=== PATIENT | male | born 1965 | race Caucasian/White ===

== ENCOUNTER 2018-02-28 06:04 | Emergency (ER) | payer BC, OTHER ==
[~2018-02-28] VITALS: Ht 172.7 cm; Wt 70.0 kg
[~2018-02-28 06:04] MED LIST: LEVE500T26 PO; MULT-506 PO
[2018-02-28 06:07] VITALS: TEMP 37; Ht 172.7 cm; Wt 70.0 kg
[2018-02-28] MEDS ORDERED: LEVE500T13 PO (06:27)
[2018-02-28] MEDS ORDERED: SODIUM CHLORIDE 0.9% 1000ML 1,000 ML IV STA (06:38)
--- NOTE | 2018-02-28 06:41 | EMERGENCY ROOM VISIT NOTE ---
History Report prepared by Jarred: Ailyn Mejía Under the Supervision of: Dr. Jadon Bray M.D. First contact with patient: 06:29 Chief Complaint: SYNCOPE Stated Complaint: SYNCOPE/CARDIAC SYMPTOMS Nursing Triage Summary: Pt states he woke up at 0500, while stating at the sink to shave he became lightheaded, dizzy, and "blackouty". History of Present Illness The patient is a 52 year old male who presents to the Emergency Room with complaints of a resolved episode of syncope that occurred about an hour and a half prior to arrival. The patient reports he has a history of "minor Afib incidents." He states he started going into Afib yesterday morning around 2:45 AM. He notes he was doing fine yesterday but this morning he woke up and was using the bathroom and states he felt lightheaded. He notes he had a couple episodes of syncope. He reports he bumped his head during his episodes but denies headache or loss of consciousness. He states he has not seen a direct care worker in a while. He last saw Dr. Jason of [facility] and had a chest X-ray and sonogram done which came back normal. He notes last time he was in the hospital he was given Cardizem which did not seem to help his Afib. He reports he is on Keppra and is not on a blood thinner. He states he has felt fine recently otherwise. He denies fevers, weakness, fatigue, or abdominal pain. He denies alcohol use. Source of History: patient Onset: an hour and a half prior to arrival Quality: other (syncope) Timing: resolved Associated Symptoms: No LOC, No fevers, No headache, No abdominal pain, No fatigue, No weakness Review of Systems See HPI for pertinent positives & negatives. A total of 10 systems reviewed and were otherwise negative. Past Medical & Surgical Medical Problems: (1) Atrial Fibrillation (2) Epilepsy Unspec W/O Mention Intractable Epilepsy (3) Hemangioma Intracranial Family History Cancer Social History Smoking Status: Never Smoker Alcohol Use: occasionally Drug Use: none Marital Status: Housing Status: lives with family Occupation Status: employed Current/Historical Medications Scheduled Levetiracetam (Keppra), 500 MG PO BID Multivitamin (Multivitamin), 1 TAB PO DAILY Allergies Coded Allergies: No Known Allergies (Unverified , 02/28/18) Physical Exam Vital Signs Date Time Temp Pulse Resp B/P (MAP) Pulse Ox O2 Delivery O2 Flow Rate FiO2 02/28/18 08:46 56 17 101/62 98 Room Air 02/28/18 07:51 57 100/50 100 Room Air 02/28/18 07:46 85/66 02/28/18 07:41 124/99 100 Nasal Cannula 2.0 02/28/18 07:40 60 02/28/18 07:40 124/78 02/28/18 07:39 Room Air 02/28/18 07:34 118/81 02/28/18 07:30 73 17 96 Room Air 02/28/18 07:03 109/91 02/28/18 07:01 88/75 02/28/18 07:00 78 13 02/28/18 06:43 98 Room Air 02/28/18 06:21 75 107/78 100 124/90 97 117/76 02/28/18 06:10 100 02/28/18 06:07 37.0 97 18 151/89 98 Room Air Physical Exam GENERAL: Awake, alert, well-appearing, in no acute distress HENT: Normocephalic, atraumatic. Oropharynx unremarkable. EYES: Normal conjunctiva. Sclera non-icteric. NECK: Supple. No nuchal rigidity. FROM. No JVD. RESPIRATORY: Clear to auscultation. CARDIAC: Regular rate, normal rhythm. Extremities warm and well perfused. Pulses equal. ABDOMEN: Soft, non-distended. No tenderness to palpation. No rebound or guarding. No masses. RECTAL: Deferred. MUSCULOSKELETAL: Chest examination reveals no tenderness. The back is symmetrical on inspection without obvious abnormality. There is no CVA tenderness to palpation. No joint edema. LOWER EXTREMITIES: Calves are equal size bilaterally and non-tender. No edema. No discoloration. NEURO: Normal sensorium. No sensory or motor deficits noted. SKIN: No rash or jaundice noted. Medical Decision & Procedures ER Provider Diagnostic Interpretation: Radiology results as stated below per my review and radiologist interpretation: CHEST ONE VIEW PORTABLE CLINICAL HISTORY: 52 years-old Male presenting with CHEST PAIN, syncope. TECHNIQUE: Portable upright AP view of the chest was obtained. COMPARISON: 06/24/2014. FINDINGS: Cardiomediastinal silhouette normal. Lungs and pleural spaces clear. Osseous structures normal. Upper abdomen normal. IMPRESSION: 1. No acute cardiopulmonary disease. Electronically signed by: Jose Mena M.D. 02/28/2018 7:02 AM Dictated Date/Time: 02/28/2018 7:01 AM Laboratory Results 02/28/18 06:20 Red Blood Count 4.96, Mean Corpuscular Volume 85.9, Mean Corpuscular Hemoglobin 30.2, Mean Corpuscular Hemoglobin Concent 35.2, Mean Platelet Volume 9.4, Neutrophils (%) (Auto) 52.6, Lymphocytes (%) (Auto) 37.4, Monocytes (%) (Auto) 7.1, Eosinophils (%) (Auto) 2.3, Basophils (%) (Auto) 0.4, Neutrophils # (Auto) 2.73, Lymphocytes # (Auto) 1.94, Monocytes # (Auto) 0.37, Eosinophils # (Auto) 0.12, Basophils # (Auto) 0.02 02/28/18 06:20 Test 02/28/18 06:20 White Blood Count 5.19 K/uL (4.8-10.8) Red Blood Count 4.96 M/uL (4.7-6.1) Hemoglobin 15.0 g/dL (14.0-18.0) Hematocrit 42.6 % (42-52) Mean Corpuscular Volume 85.9 fL (80-100) Mean Corpuscular Hemoglobin 30.2 pg (25-34) Mean Corpuscular Hemoglobin Concent 35.2 g/dl (32-36) Platelet Count 141 K/uL (130-400) Mean Platelet Volume 9.4 fL (7.4-10.4) Neutrophils (%) (Auto) 52.6 % Lymphocytes (%) (Auto) 37.4 % Monocytes (%) (Auto) 7.1 % Eosinophils (%) (Auto) 2.3 % Basophils (%) (Auto) 0.4 % Neutrophils # (Auto) 2.73 K/uL (1.4-6.5) Lymphocytes # (Auto) 1.94 K/uL (1.2-3.4) Monocytes # (Auto) 0.37 K/uL (0.11-0.59) Eosinophils # (Auto) 0.12 K/uL (0-0.5) Basophils # (Auto) 0.02 K/uL (0-0.2) RDW Standard Deviation 40.6 fL (36.4-46.3) RDW Coefficient of Variation 12.8 % (11.5-14.5) Immature Granulocyte % (Auto) 0.2 % Immature Granulocyte # (Auto) 0.01 K/uL (0.00-0.02) Anion Gap 7.0 mmol/L (3-11) Est Creatinine Clear Calc Drug Dose 72.3 ml/min Estimated GFR () 84.9 Estimated GFR (Non- 73.3 BUN/Creatinine Ratio 17.0 (10-20) Calcium Level 7.9 mg/dl (8.5-10.1) Total Bilirubin 0.5 mg/dl (0.2-1) Direct Bilirubin 0.2 mg/dl (0-0.2) Aspartate Amino Transf (AST/SGOT) 15 U/L (15-37) Alanine Aminotransferase (ALT/SGPT) 18 U/L (12-78) Alkaline Phosphatase 32 U/L (45-117) Total Creatine Kinase 92 U/L (39-308) Creatine Kinase MB 1.2 ng/ml (0.5-3.6) Creatine Kinase MB Ratio 1.3 (0-3.0) Troponin I < 0.015 ng/ml (0-0.045) Total Protein 6.1 gm/dl (6.4-8.2) Albumin 3.3 gm/dl (3.4-5.0) Lipase 137 U/L (73-393) Labs reviewed by ED physician. Medications Administered Medications (Trade) Dose Ordered Sig/Dipika Route Start Time Stop Time Status Last Admin Dose Admin Sodium Chloride 1,000 ml @ 999 mls/hr Q1H1M STAT IV 02/28/18 06:38 02/28/18 07:38 DC 02/28/18 06:46 999 MLS/HR Ondansetron HCl (Zofran Inj) 4 mg NOW STAT IV 02/28/18 07:08 02/28/18 07:09 DC 02/28/18 07:38 4 MG Procedure Procedural Sedation Indication atrial fibrillation cardioversion. Total time: 20 minutes. Written consent was obtained after the risks and benefits were explained to the patient, including, but not limited to aspiration, allergic reaction, breathing difficulties, cardiac complications, vomiting, pain, event recall, bleeding, and /or infection. Pre-sedation examination and paperwork completed. The patient was on 100% oxygen via NRB prior to the procedure. Continuos end tidal CO2 monitoring, pulse oximetry, and cardiac monitoring were utilized. Suction, airway equipment, medications, respiratory equipment, and appropriate personnel were prepared prior to the initiation of the procedure. A time out was taken. Sedation was achieved utilizing 190 mg of Propofol given in aliquots of 30. After I observed the patient had reached the appropriate level of sedation the main procedure was performed without complication. Sedation was discontinued and the monitoring continued. The patient recovered quickly from the effects of the medication without complication or adverse event. ECG Per My Interpretation Indication: syncope Rate (beats per minute): 68 Rhythm: atrial fibrillation Findings: other (no ST elevation or depression) ED Course 0630: Past medical records reviewed. The patient was evaluated in room A2. A complete history and physical examination was performed. 0750: Patient's repeat EKG shows normal sinus rhythm with a rate of 60. No ST elevation or depression. The patient was cardioverted out of Afib and is now in a normal sinus rhythm. 0815: Upon reexamination the patient is resting comfortably. I discussed results and treatment plan with the patient. He verbalizes agreement and understanding. The patient is ready for discharge. Medical Decision Differential diagnosis: Etiologies such as cardiac ischemia, aortic dissection, pulmonary embolism, pneumonia, pneumothorax, musculoskeletal, infections, pericarditis, myocarditis , esophageal rupture, gastrointestinal, as well as others were entertained. This is a 52-year-old male who presents emergency department complaining of 3 syncopal episodes back to back this morning. The patient is in atrial fibrillation and has been in it for approximately 28 hours. Patient reports that he normally converts spontaneously however he has not this time. 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 He also reports that medicines including Cardizem and beta-blockers have not worked for him in the past. Based on all this information and using shared medical decision making with both the patient as well as the patient's direct care worker we made the decision to cardiovert this patient back to normal sinus rhythm. He was sedated as above. Cardioversion was performed by Dr. Traci treviño. Please see her notes. After some time the patient did recover and was feeling much better. He is going to follow-up with Dr. Gan office. Patient was in agreement with the treatment plan. Medication Reconcilliation Current Medication List: was personally reviewed by me Blood Pressure Screening Patient's blood pressure: Normal blood pressure Impression Primary Impression: Afib Scribe Attestation The scribe's documentation has been prepared under my direction and personally reviewed by me in its entirety. I confirm that the note above accurately reflects all work, treatment, procedures, and medical decision making performed by me. Departure Information Dispostion Home / Self-Care Referrals Caio Beatty Jr,D.O. (PCP) Patient Instructions My [facility] Additional Instructions Follow up with DR Jason's office You have been examined and treated today on an emergency basis only. This is not a substitute for, or an effort to provide, complete comprehensive medical care. It is impossible to recognize and treat all injuries or illnesses in a single emergency department visit. It is therefore important that you follow up closely with Dr Beatty. Call as soon as possible for an appointment. Thank you for your time and consideration. I look forward to speaking with you again soon. Please don't hesitate to call us if you have any questions. Problem Qualifiers Primary Impression: Afib Atrial fibrillation type: unspecified Qualified Codes: I48.91 - Unspecified atrial fibrillation
[2018-02-28 06:43] VITALS: O2SAT 98
[2018-02-28 06:47] LABS: BASO % 0.4 %; BASO ABS # 0.02 K/uL (0-0.2); EOS % 2.3 %; EOS ABS # 0.12 K/uL (0-0.5); HEMATOCRIT 42.6 % (42-52); IG# 0.01 K/uL (0.00-0.02); LYMPH % 37.4 %; LYMPH ABS # 1.94 K/uL (1.2-3.4); MEAN CELL VOLUME 85.9 fL (80-100); MEAN CORPUSCULAR HEMOGLOBIN 30.2 pg (25-34); MEAN CORPUSCULAR HGB CONC 35.2 g/dl (32-36); MEAN PLATELET VOLUME 9.4 fL (7.4-10.4); MONO % 7.1 %; MONO ABS # 0.37 K/uL (0.11-0.59); NEUT % 52.6 %; NEUT ABS # 2.73 K/uL (1.4-6.5); PLATELET COUNT 141 K/uL (130-400); RED CELL DISTRIBUTION WIDTH CV 12.8 % (11.5-14.5); RED CELL DISTRIBUTION WIDTH SD 40.6 fL (36.4-46.3); WHITE BLOOD COUNT 5.19 K/uL (4.8-10.8)
[2018-02-28 06:59] LABS: ALBUMIN 3.3 gm/dl (3.4-5.0); ALKALINE PHOSPHATASE 32 U/L (45-117); ALT/SGPT 18 U/L (12-78); AST/SGOT 15 U/L (15-37); BLOOD UREA NITROGEN 19 mg/dl (7-18); CALCIUM 7.9 mg/dl (8.5-10.1); CARBON DIOXIDE 25 mmol/L (21-32); CKMB 1.2 ng/ml (0.5-3.6); CREATININE 1.13 mg/dl (0.60-1.40); GLUCOSE 101 mg/dl (70-99); LIPASE 137 U/L (73-393); POTASSIUM 3.8 mmol/L (3.5-5.1); SODIUM 143 mmol/L (136-145); TOTAL PROTEIN 6.1 gm/dl (6.4-8.2)
--- NOTE | 2018-02-28 07:03 | DIAGNOSTIC IMAGING REPORT ---
CHEST ONE VIEW PORTABLE CLINICAL HISTORY: 52 years-old Male presenting with CHEST PAIN, syncope. TECHNIQUE: Portable upright AP view of the chest was obtained. COMPARISON: 06/24/2014. FINDINGS: Cardiomediastinal silhouette normal. Lungs and pleural spaces clear. Osseous structures normal. Upper abdomen normal. IMPRESSION: 1. No acute cardiopulmonary disease. Electronically signed by: Jose Mena M.D. 02/28/2018 7:02 AM Dictated Date/Time: 02/28/2018 7:01 AM
[2018-02-28] MEDS ORDERED: ONDANSETRON INJ 2 MG/ML 2 ML VIAL ONE (07:08)
[2018-02-28] MEDS ORDERED: PROPOFOL IV EMULSION 10 MG/ML 20 ML VIAL IV STA (07:08)
[2018-02-28] MEDS ORDERED: PROPOFOL IV EMULSION 10 MG/ML 20 ML VIAL ONE (07:08)
[2018-02-28] MEDS ORDERED: ONDANSETRON INJ 2 MG/ML 2 ML VIAL IV STA (07:08)
--- NOTE | 2018-02-28 07:56 | EMERGENCY ROOM VISIT NOTE ---
Pre-Mod Sedation Assessment General Date of Moderate Sedation: Feb 28, 2018. Vital Signs: Vital Signs Past 12 Hours Date Time Temp Pulse Resp B/P (MAP) Pulse Ox O2 Delivery O2 Flow Rate FiO2 02/28/18 07:40 60 02/28/18 07:39 Room Air 02/28/18 06:43 98 Room Air 02/28/18 06:21 75 107/78 100 124/90 97 117/76 02/28/18 06:10 100 02/28/18 06:07 37.0 97 18 151/89 98 Room Air Review Cardiovascular: regular rate, rhythm, no edema, no gallop, no JVD, no murmur, normal peripheral pulses Abdomen: normal bowel sounds, non tender, soft, no organomegaly, no pulsatile mass, normal rectal exam, occult blood negative Lungs: chest non-tender, lungs clear, normal breath sounds, no respiratory distress, no accessory muscle use Airway Class: I Pre-Sedation Airway Assessment Oral Cavity: WNL Able to Visualize Vocal Cords: Yes Short Thick Neck: No Hx of Sleep Apnea: No Smoking Status: Never Smoker Mallampati Classification: Class I (Sft palate,uvula,fauces,pillar) ASA Classification: Class I Procedure Planning Contraindications-for Mod Sed: None Yes Notes The planned sedation has been discussed with the patient and consent obtained. I have identified the patient, determined the appropriateness of sedation and have assessed the patient immediately prior to the procedure. All medicine(s) and interventions are by my order.
--- NOTE | 2018-02-28 07:57 | EMERGENCY ROOM VISIT NOTE ---
Post-Moderate Sedation Plan General Date of Moderate Sedation Feb 28, 2018. Vital Signs: Vital Signs Past 12 Hours Date Time Temp Pulse Resp B/P (MAP) Pulse Ox O2 Delivery O2 Flow Rate FiO2 02/28/18 07:51 57 100/50 100 Room Air 02/28/18 07:46 85/66 02/28/18 07:41 124/99 100 Nasal Cannula 2.0 02/28/18 07:40 60 02/28/18 07:40 124/78 02/28/18 07:39 Room Air 02/28/18 07:34 118/81 02/28/18 07:30 73 17 96 Room Air 02/28/18 07:03 109/91 02/28/18 07:01 88/75 02/28/18 07:00 78 13 02/28/18 06:43 98 Room Air 02/28/18 06:21 75 107/78 100 124/90 97 117/76 02/28/18 06:10 100 02/28/18 06:07 37.0 97 18 151/89 98 Room Air Review - Discharge Plan Post Moderate Sedation Plan: On clinical assessment, the patient appears to have tolerated the conscious sedation without complications. Patient is recovering as anticipated. Patient will continue to be monitored by nursing and may be discharged when conscious sedation discharge criteria are met.
[2018-02-28 08:46] VITALS: BP 101/62; PULSE 56; O2SAT 98
--- NOTE | 2018-03-01 06:14 | EMERGENCY ROOM VISIT NOTE ---
ED Visit Note First contact with patient: 07:00 Patient evaluated at bedside by myself after discussion with Dr. Bray regarding patient's need for cardioversion. Dr. Bray performed the sedation for the procedure. Please see his note for additional information. All equipment brought to the room including the code cart with monitor. Pads placed on the patient. Additional airway equipment available at bedside, patient placed on oxygen as a precaution and carbon dioxide monitor also placed. I did discuss with the patient the procedure. He has never had a prior cardioversion. Patient has been in atrial fibrillation for approximately 36 hours at this point in time. Patient cannot be safely anticoagulated due to history of an AVM. Dr. Bray discussed the case with cardiology who was agreeable with our plan for cardioversion at bedside per patient made aware of all results and consent form signed for both the cardioversion as well as sedation. After adequate sedation was achieved, monitor synced, and then charged to 100 J, after an all clear was performed, patient was cardioverted which resulted in a normal sinus rhythm. Repeat EKG was performed. Patient awoke out of sedation normally. Patient was hemodynamically stable throughout.
== END 2018-02-28 08:57 | disposition home or self-care (01) ==
LOC: EDBD 06:04 → C.EDA 06:07
DX: I48.91 Unspecified atrial fibrillation (principal); G40.909 Epilepsy, unspecified, not intractable, without status epilepticus